=== PATIENT | male | born 1950 | race Caucasian/White ===

== ENCOUNTER 2023-06-01 12:23 | Outpatient (CLI) | payer OTHER, SELFPAY ==
[2023-06-01 12:30] VITALS: BMI 26.9
[2023-06-01 12:50] LABS: Basophils # 0.1 K/mm3 (0-0.2); Basophils % 1.1 % (0.1-2.0); Eosinophils # 0.3 K/mm3 (0.0-0.4); Eosinophils % 7.4 % (0.1-12.0); Hemoglobin 11.1 g/dL (14.1-18.0); Lymphocytes # 1.1 K/mm3 (0.7-4.5); Lymphocytes % 28.2 % (10-50); Mean Corpuscular HGB Conc 32.6 g/dL (31.8-35.4); Mean Corpuscular Hemoglobin 28.8 pg (27.0-31.2); Mean Corpuscular Volume 88.3 fl (80-94); Mean Platelet Volume 8.8 fl (7.4-10.4); Monocytes # 0.4 K/mm3 (0.1-1.0); Monocytes % 10.7 % (1.7-9.3); Neutrophils # 2.1 K/mm3 (1.8-7.8); Neutrophils % 52.5 % (37.0-80.0); Platelet Count 227 K/mm3 (142-424); Red Blood Count 3.85 M/mm3 (4.60-6.20); Red Cell Distribution Width 15.7 % (11.5-17.5)
[2023-06-01 13:03] LABS: Chloride 107 mmol/L (98-107)
[2023-06-01 13:04] LABS: Sodium 137 mmol/L (136-145)
[2023-06-01 13:06] LABS: Alanine Aminotransferase 26 U/L (12-78); Alkaline Phosphatase 83 U/L (38-126); Aspartate Amino Transferase 38 U/L (17-59); Bilirubin,Total 0.2 mg/dl (0.2-1.3); Blood Urea Nitrogen 22 mg/dl (9-20); Carbon Dioxide 27 mmol/L (22.0-30.0); Creatinine Clearance Estimated 57 mL/min (50-200); Estimated Glomerular Filt Rate 50 ml/min (>60); GFR (African American) 60 ML/MIN (>60)
[2023-06-01 13:07] LABS: Albumin/Globulin Ratio 1.3 (1.1-1.8); Calcium 8.8 mg/dl (8.4-10.2); Glucose 94 mg/dl (74-100)
--- NOTE | 2023-06-01 13:18 | PC.NURSE ---
1240 CBC/CMP obtained per venipuncture x1 stick R AC with butterly needle. Patient tolerated well. Patient is here for appointment with Dr. Gray.
== END 2023-06-01 13:30 | disposition home or self-care (01) ==
LOC: INF 12:26
PROVIDERS: PCP Family Medicine; Visit Provider Internal Medicine Medical Oncology
DX: C67.9 Malignant neoplasm of bladder, unspecified (principal)
CPT/HCPCS: 36415; 80053; 85025

== ENCOUNTER 2024-08-23 14:34 | Outpatient (CLI) | payer MEDICARE, SELFPAY ==
[2024-08-24 08:23] LABS: CA 19-9 8 U/mL (0-35)
== END 2024-08-23 23:59 | disposition home or self-care (01) ==
LOC: LAB 14:35
PROVIDERS: Visit Provider Internal Medicine Medical Oncology
DX: C67.9 Malignant neoplasm of bladder, unspecified (principal); Z85.07 Personal history of malignant neoplasm of pancreas
CPT/HCPCS: 36415; 86301